=== PATIENT | male | born 1970 | race Caucasian/White ===

== ENCOUNTER 2017-03-03 20:48 | Observation (INO) | payer BC ==
[~2017-03-03] VITALS: Ht 180.3 cm; Wt 103.0 kg
[2017-03-03 22:04] LABS: HEMOGLOBIN 16.7 gm/dl (14.0-17.5); RED BLOOD COUNT 5.68 M/UL (4.20-5.50); WHITE BLOOD COUNT 9.8 K/UL (4.5-11.0)
[2017-03-03 22:24] LABS: BUN/CREATININE RATIO 13 (0-10)
[2017-03-05 04:23] LABS: HEMOGLOBIN 13.1 gm/dl (14.0-17.5); RED BLOOD COUNT 4.59 M/UL (4.20-5.50); WHITE BLOOD COUNT 4.3 K/UL (4.5-11.0)
[2017-03-05 04:48] LABS: BUN/CREATININE RATIO 9 (0-10)
[2017-03-05] MEDS ORDERED: PROTONIX40 MG PO (15:35)
== END 2017-03-05 16:13 | disposition home or self-care (01) ==
LOC: ER1 20:48 → PROG CARE 03-04 00:11 → ZEROF 03-04 00:11 → PROG CARE 03-04 02:25
PROVIDERS: Emergency Medicine; Internal Medicine Gastroenterology; Physician Assistant Medical; ADMIT Internal Medicine
PROC: 0DJ08ZZ Inspection of Upper Intestinal Tract, Via Natural or Artificial Opening Endoscopic (ICD-10-PCS; principal; 2017-03-05 13:15)
DX: K92.1 Melena (principal); K44.9 Diaphragmatic hernia without obstruction or gangrene; K21.9 Gastro-esophageal reflux disease without esophagitis; Z79.899 Other long term (current) drug therapy
CPT/HCPCS: 36415; 70450; 71020; 80048; 80053; 81001; 82272; 82550; 82553; 83605; 83690; 83735; 83874; 83880; 84484; 85025; 85027; 85610; 85730; 86850; 86900; 86901; 87040; 87086; 93005; 96374; 96375; 96376; 99285; C9113; G0378; J1200; J2250; J2405; J2550; J2765; J3010; J7040

== ENCOUNTER 2022-06-27 17:26 | Emergency (ER) | payer BC ==
[~2022-06-27 17:26] MED LIST: PROTONIX40 MG PO
== END 2022-06-27 20:10 | disposition home or self-care (01) ==
LOC: ER1 17:26
DX: S61.213A Laceration without foreign body of left middle finger without damage to nail, initial encounter (principal); W27.0XXA Contact with workbench tool, initial encounter
CPT/HCPCS: 73130; 99281